=== PATIENT | female | born 1970 | race American Indian/Alaskan Native ===

== ENCOUNTER 2017-06-12 16:26 | Emergency (ER) | payer MEDICAID ==
[2017-06-12 17:06] VITALS: BP 124/62
--- NOTE | 2017-06-12 19:45 | XRay Report ---
FINAL REPORT EXAM: XR KNEE 3V LT HISTORY: LT KNEE PAIN TECHNIQUE: AP, oblique, and lateral views of the left knee PRIORS: None. FINDINGS: No acute fracture or dislocation is seen. The soft tissues DOS raise a small suprapatellar joint effusion. Joint spaces are maintained and bony mineralization is normal. IMPRESSION: Small joint effusion. No acute bony abnormality of the left knee.
--- NOTE | 2017-06-12 23:45 | Emergency Department Report ---
ED Extremity Problem HPI - General Chief complaint: Extremity Injury, Lower Stated complaint: KNEE PAIN Time Seen by Provider: 06/12/17 23:21 Source: patient Mode of arrival: Ambulatory Limitations: No Limitations - History of Present Illness Initial comments: 47-year-old female past medical history obesity presents with complaint of intermittent left knee pain for several months but slightly worse in the last 2 weeks. Patient states she has pain that is aching in quality in her left knee joint worse after working throughout the day. Patient is ambulatory without assistance. States she has been taking Tylenol with minimal relief of her pain. Patient states she has had cortisone injections to her left knee joints in the past which have helped her. Patient denies any recent falls or direct trauma denies any fevers or chills denies any erythema or redness of skin overlying left knee. Patient is awake alert and oriented 3 and ambulatory without assistance. Patient denies any recent travel calf tenderness swelling fevers or chills chest pain shortness of breath or recent surgeries. Patient states pain is in her left knee and not any other aspect of her leg. MD Complaint: extremity pain Onset/Timin -: month(s) Location: left, knee -: Yes arthralgia Severity scale (0 -10): 5 Quality: aching Consistency: intermittent Worsens with: walking, exertion Associated Symptoms: denies other symptoms - Related Data Previous Rx's Medication Instructions Recorded Last Taken Type Naproxen 500 mg PO BID PRN #30 tablet 06/12/17 Unknown Rx traMADol [Ultram 50 MG tab] 50 mg PO Q6HR PRN #12 tablet 06/12/17 Unknown Rx Allergies Allergy/AdvReac Type Severity Reaction Status Date / Time No Known Allergies Allergy Unverified 06/12/17 17:03 ED Review of Systems ROS: Stated complaint: KNEE PAIN Other details as noted in HPI Constitutional: denies: chills, fever Eyes: denies: eye pain, eye discharge, vision change ENT: denies: ear pain, throat pain Respiratory: denies: cough, shortness of breath, wheezing Cardiovascular: denies: chest pain, palpitations Endocrine: no symptoms reported Gastrointestinal: denies: abdominal pain, nausea, diarrhea Genitourinary: denies: urgency, dysuria, discharge Musculoskeletal: as per HPI, arthralgia (chronic left knee pain). denies: back pain, joint swelling Skin: denies: rash, lesions Neurological: denies: headache, weakness, paresthesias Psychiatric: denies: anxiety, depression Hematological/Lymphatic: denies: easy bleeding, easy bruising ED Past Medical Hx - Past Medical History Previous Medical History?: No - Surgical History Past Surgical History?: No - Social History Smoking Status: Never Smoker Substance Use Type: None - Medications Home Medications: Home Medications Medication Instructions Recorded Confirmed Last Taken Type Naproxen 500 mg PO BID PRN #30 tablet 06/12/17 Unknown Rx traMADol [Ultram 50 MG tab] 50 mg PO Q6HR PRN #12 tablet 06/12/17 Unknown Rx ED Physical Exam - General Limitations: No Limitations General appearance: alert, in no apparent distress - Head Head exam: Present: atraumatic, normocephalic - Eye Eye exam: Present: normal appearance, PERRL, EOMI - ENT ENT exam: Present: mucous membranes moist - Neck Neck exam: Present: normal inspection - Respiratory Respiratory exam: Present: normal lung sounds bilaterally. Absent: respiratory distress - Cardiovascular Cardiovascular Exam: Present: regular rate, normal rhythm. Absent: systolic murmur, diastolic murmur, rubs, gallop - GI/Abdominal GI/Abdominal exam: Present: soft, normal bowel sounds - Extremities Exam Extremities exam: Present: normal inspection - Expanded Lower Extremity Exam Left Hip exam: Present: normal inspection, full ROM Upper Leg exam: Present: normal inspection, full ROM Knee exam: Present: normal inspection, full ROM (left knee flexion and extension fully intact on clinical exam), pain/laxity with valgus, pain/laxity with varus (some pain with varices and valgus movements of knee), full knee extension ( is able to fully extend knee against resistance) Lower Leg exam: Present: normal inspection, full ROM Ankle exam: Present: normal inspection, full ROM Foot/Toe exam: Present: normal inspection, full ROM Neuro vascular tendon exam: Present: no vascular compromise (distal dorsalis pedis and posterior tibial pulses are intact on palpation) Gait: Positive: observed and normal 1 - She states she has pain in this region here - Back Exam Back exam: Present: normal inspection - Neurological Exam Neurological exam: Present: alert, oriented X3, CN II-XII intact, normal gait - Psychiatric Psychiatric exam: Present: normal affect, normal mood - Skin Skin exam: Present: warm, dry, intact, normal color. Absent: rash ED Course Vital Signs 06/12/17 17:03 Temperature 98.3 F Pulse Rate 83 Respiratory 16 Rate Blood Pressure 124/62 O2 Sat by Pulse 96 Oximetry ED Medical Decision Making - Medical Decision Making A/P: Chronic Left knee pain, arthralgia, possible meniscus injury 1-based on clinical exam and patient's history patient may have ligamentous or meniscus injury left knee. No clinical signs or history suggestive of DVT, left lower extremity neurovascularly intact on clinical exam good distal pulses and sensation 2-Geoff wrap left knee, RICE therapy, follow-up with orthopedics 3-naproxen when necessary, tramadol when necessary 4- pt ambulatory without assistance Critical care attestation.: If time is entered above; I have spent that time in minutes in the direct care of this critically ill patient, excluding procedure time. ED Disposition Clinical Impression: Chronic pain of left knee Disposition: - TO HOME OR SELFCARE Is pt being admited?: No Does the pt Need Aspirin: No Condition: Stable Instructions: Arthralgia (ED), Knee Pain (ED), Knee Effusion (ED), RICE Therapy (ED) Prescriptions: Naproxen 500 mg PO BID PRN #30 tablet PRN Reason: Pain traMADol [Ultram 50 MG tab] 50 mg PO Q6HR PRN #12 tablet PRN Reason: Pain Referrals: RAQUEL OSEI MD [Staff Physician] - 3-5 Days [facility] [Provider Group] - 3-5 Days Time of Disposition: 23:45
[2017-06-12] MEDS ORDERED: ULTRAM PO ONE (23:46)
[2017-06-12] MEDS ORDERED: TYLENOL PO ONE (23:47)
== END 2017-06-12 23:55 | disposition home or self-care (01) ==
LOC: ED 16:26
DX: M25.562 Pain in left knee (principal); G89.29 Other chronic pain; X50.1XXA Overexertion from prolonged static or awkward postures, initial encounter; Y93.89 Activity, other specified; Y92.89 Other specified places as the place of occurrence of the external cause; Y99.8 Other external cause status
CPT/HCPCS: 99284